=== PATIENT | male | born 1950 | race Caucasian/White ===

== ENCOUNTER 2024-07-24 08:14 | Outpatient (CLI) | payer MEDICARE | END 2024-07-24 08:15 | disposition home or self-care (01) | LOC: CSHULT 08:14 | PROVIDERS: ATTEND Family Medicine | DX: G45.9 Transient cerebral ischemic attack, unspecified (principal); I65.29 Occlusion and stenosis of unspecified carotid artery | CPT/HCPCS: 93880 ==